=== PATIENT | male | born 2000 | race Caucasian/White ===

== ENCOUNTER 2019-02-27 14:35 | Emergency (ER) | payer SELFPAY ==
[~2019-02-27] VITALS: Ht 177.8 cm; Wt 68.0 kg
[~2019-02-27 14:35] MED LIST: OSEL75CA PO
[2019-02-27 14:50] VITALS: BP 134/71
[2019-02-27] MEDS ORDERED: BACITRACIN TOPICAL OINT PACKET. TP ONE (15:00)
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
[2019-02-27] MEDS ORDERED: AMOX500C PO (15:46)
== END 2019-02-27 16:15 | disposition home or self-care (01) ==
LOC: ER 14:35
DX: T23.271A Burn of second degree of right wrist, initial encounter (principal); T31.0 Burns involving less than 10% of body surface; J02.0 Streptococcal pharyngitis; B95.5 Unspecified streptococcus as the cause of diseases classified elsewhere; X08.8XXA Exposure to other specified smoke, fire and flames, initial encounter; Y93.89 Activity, other specified; Y92.89 Other specified places as the place of occurrence of the external cause; Y99.8 Other external cause status
CPT/HCPCS: 87880; 99283; 99284